=== PATIENT | male | born 1995 | race Two or more races ===

== ENCOUNTER 2018-12-11 22:01 | Emergency (ER) | payer MEDICAID ==
[~2018-12-11] VITALS: Ht 177.8 cm; Wt 81.6 kg
[2018-12-11 22:45] VITALS: BP 143/92
== END 2018-12-12 02:58 | disposition left against medical advice (07) ==
LOC: ER 22:07
DX: M25.521 Pain in right elbow (principal); Z53.21 Procedure and treatment not carried out due to patient leaving prior to being seen by health care provider
CPT/HCPCS: 73080

== ENCOUNTER 2018-12-12 11:03 | Emergency (ER) | payer MEDICAID ==
[~2018-12-12] VITALS: Ht 177.8 cm; Wt 81.6 kg
[2018-12-12 11:10] VITALS: BP 134/85
== END 2018-12-12 12:38 | disposition home or self-care (01) ==
LOC: ER 11:03
DX: S50.01XA Contusion of right elbow, initial encounter (principal); Y04.2XXA Assault by strike against or bumped into by another person, initial encounter; Y93.89 Activity, other specified; Y92.098 Other place in other non-institutional residence as the place of occurrence of the external cause; Y99.8 Other external cause status

== ENCOUNTER → 2019-08-29 | Emergency (ER) | payer SELFPAY ==
[~2019-08-29] VITALS: Ht 180.3 cm; Wt 79.4 kg
[2019-08-29 20:11] VITALS: BP 121/73
[2019-08-29 20:55] LABS: Urine Bacteria NONE SEEN /hpf (None Seen); Urine Blood Negative /uL (Negative); Urine Hyaline Cast MOD /lpf (0 - 2); Urine Mucus FEW (None Seen); Urine WBC 1 /hpf (0 - 3)
[2019-08-29 21:05] LABS: Alcohol, Urine < 3.0 mg/dL (0-5); Amphetamine Screen, Urine NEGATIVE (NEGATIVE); Barbiturate Scree,Urine NEGATIVE (NEGATIVE); Benzodiazephine Screen, Urine NEGATIVE (NEGATIVE); Cannabinoid Screen, Urine NEGATIVE (NEGATIVE); Cocaine Screen, Urine NEGATIVE (NEGATIVE); Opiate Scree,Urine NEGATIVE (NEGATIVE); Phencyclidine Screen, Urine NEGATIVE (NEGATIVE)
== END | disposition left against medical advice (07) ==
LOC: ER 20:11
DX: R25.1 Tremor, unspecified (principal); Z53.21 Procedure and treatment not carried out due to patient leaving prior to being seen by health care provider
CPT/HCPCS: 80307; 81001

== ENCOUNTER 2022-11-13 12:17 | Emergency (ER) | payer MEDICAID ==
[2022-11-13 13:11] LABS: Basophils # (auto) 0 10 ^3/uL (0-0.2); Basophils % (auto) 0.8 % (0.0-2.0); Eosinophils # (auto) 0.2 10 ^3/uL (0-0.8); Eosinophils % (auto) 3.4 % (0.0-7.0); Hematocrit 43.6 % (41.0-53.0); Hemoglobin 14.4 g/dL (13.5-17.5); Lymphocytes # (auto) 1.6 10 ^3/uL (0.4-5.4); Lymphocytes % (auto) 28.5 % (10.0-50.0); Mean Corpuscular Hemoglobin 27.5 pg (28.0-32.0); Mean Corpuscular Volume 83.2 fL (80.0-100.0); Monocytes # (auto) 0.6 10 ^3/uL (0-1.3); Monocytes % (auto) 9.6 % (0.0-12.0); Neutrophils # (auto) 3.3 10 ^3/uL (1.6-8.6); Neutrophils % (auto) 57.7 % (37.0-80.0); Nucleated Red Blood Cells % 0.2 %; Red Blood Cells 5.24 10^6/uL (4.5-5.90); Red Cell Distribution Width 13.5 % (11.8-14.3); White Blood Cell 5.8 10^3/uL (4.4-10.8)
[2022-11-13 13:12] LABS: Urine Amorphous Crystal FEW /hpf (None Seen); Urine Bacteria NONE SEEN /hpf (None Seen); Urine Blood Negative /uL (Negative); Urine Specific Gravity 1.018 (1.001-1.035); Urine WBC <1 /hpf (0 - 3)
[2022-11-13 13:51] LABS: Albumin 3.7 g/dL (3.4-5.0); Calcium 9.4 mg/dL (8.5-10.1); Potassium 4.1 mmol/L (3.5-5.1)
[2022-11-13 14:05] LABS: BUN/Creatinine Ratio 9.7 (10.0-20.0); Bilirubin, Total 0.6 mg/dL (0.2-1.0)
[2022-11-13] MEDS ORDERED: IOHEXOL 300 MG/ML 100ML BOTTLE IJ ONE (16:03)
[2022-11-13] MEDS ORDERED: cefTRIAXone 1GM/50ML D5W 50 ML IV ONE (17:00)
[2022-11-13] MEDS ORDERED: DOXYCYCLINE 100 MG TAB/CAP PO ONE (17:00)
[2022-11-13] MEDS ORDERED: DOXY-340 PO (17:00)
[2022-11-13] MEDS ORDERED: KETOROLAC TROMETH 30 MG/ML 1ML VIAL IV ONE (17:15)
[2022-11-13 17:32] VITALS: BP 101/62
== END 2022-11-13 18:00 | disposition home or self-care (01) ==
LOC: ER 12:17
DX: N41.0 Acute prostatitis (principal)
CPT/HCPCS: 36415; 74177; 80053; 81001; 85025; 86592; 87491; 87591; 96365; 96375; 99285; J0696; J1885; Q9967

== ENCOUNTER 2022-11-18 14:29 | Emergency (ER) | payer MEDICAID ==
[~2022-11-18] VITALS: Ht 154.9 cm; Wt 82.0 kg
[~2022-11-18 14:29] MED LIST: DOXY-340 PO
[2022-11-18 14:56] LABS: Urine WBC None Seen /hpf (0 - 3)
[2022-11-18 15:18] LABS: Urine Bacteria NONE SEEN /hpf (None Seen); Urine Blood Negative /uL (Negative); Urine Mucus FEW (None Seen); Urine Specific Gravity 1.019 (1.001-1.035)
[2022-11-18] MEDS ORDERED: IOHEXOL 350 MG/ML 100ML IJ ONE (15:40)
[2022-11-18] MEDS ORDERED: METR500T PO (17:01)
[2022-11-18] MEDS ORDERED: IBU600T PO (17:07)
[2022-11-18 17:26] VITALS: BP 125/68
== END 2022-11-18 17:28 | disposition home or self-care (01) ==
LOC: ER 14:29
DX: N41.0 Acute prostatitis (principal)
CPT/HCPCS: 74176; 81001; 99284; Q9967

== ENCOUNTER 2024-05-20 18:37 | Emergency (ER) | payer MEDICAID ==
[~2024-05-20] VITALS: Ht 182.9 cm; Wt 70.6 kg
[~2024-05-20 18:37] MED LIST changes: -DOXY-340 PO; +DOXY1CAP57 PO; +IBU600T PO; +METR500T PO
[2024-05-20] MEDS ORDERED: IBU600T PO (19:47)
[2024-05-20 20:39] VITALS: BP 118/79; PULSE 62; RESP 18; TEMP 98.9; O2SAT 100
== END 2024-05-20 20:41 | disposition home or self-care (01) ==
LOC: ER 18:37
DX: S62.291A Other fracture of first metacarpal bone, right hand, initial encounter for closed fracture (principal); Z79.899 Other long term (current) drug therapy; W18.39XA Other fall on same level, initial encounter; Y93.89 Activity, other specified; Y92.89 Other specified places as the place of occurrence of the external cause; Y99.8 Other external cause status
CPT/HCPCS: 29125; 73130

== ENCOUNTER 2024-09-19 18:42 | Emergency (ER) | payer MEDICAID ==
[~2024-09-19] VITALS: Ht 180.3 cm; Wt 84.1 kg
[2024-09-19 20:37] VITALS: BP 151/103; PULSE 78; RESP 18; TEMP 98.6; O2SAT 97
[2024-09-19] MEDS ORDERED: ACET500T58 PO (20:51)
[2024-09-19] MEDS ORDERED: CYCL-837 PO (20:51)
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
== END 2024-09-19 21:03 | disposition home or self-care (01) ==
LOC: ER 18:55
DX: S39.012A Strain of muscle, fascia and tendon of lower back, initial encounter (principal); S29.012A Strain of muscle and tendon of back wall of thorax, initial encounter; S83.91XA Sprain of unspecified site of right knee, initial encounter; R51.9 Headache, unspecified; V89.2XXA Person injured in unspecified motor-vehicle accident, traffic, initial encounter; Y93.89 Activity, other specified; Y92.410 Unspecified street and highway as the place of occurrence of the external cause; Y99.8 Other external cause status

== ENCOUNTER 2024-09-22 12:37 | Emergency (ER) | payer MEDICAID ==
[~2024-09-22] VITALS: Ht 180.3 cm; Wt 81.8 kg
[~2024-09-22 12:37] MED LIST changes: +ACET500T58 PO; +CYCL-837 PO
[2024-09-22 13:53] VITALS: BP 138/81; PULSE 73; RESP 16; TEMP 98.1; O2SAT 96
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
--- NOTE | 2024-09-22 14:30 | DVH ---
CLINICAL INDICATION: INJURY TECHNIQUE: 3-view left hand XY L HAND 3V XRAY Comparison: XY R HAND 3 VIEW XRAY on DOS: 05/20/24 FINDINGS/IMPRESSION: : There is no evidence of acute fracture or dislocation. Soft tissues are unremarkable.
[2024-09-22] MEDS ORDERED: IBU600T PO (14:46)
== END 2024-09-22 14:56 | disposition home or self-care (01) ==
LOC: ER 12:37
DX: S63.92XA Sprain of unspecified part of left wrist and hand, initial encounter (principal); S19.9XXA Unspecified injury of neck, initial encounter; S09.90XA Unspecified injury of head, initial encounter; Z79.899 Other long term (current) drug therapy; W19.XXXA Unspecified fall, initial encounter; Y93.89 Activity, other specified; Y92.89 Other specified places as the place of occurrence of the external cause; Y99.8 Other external cause status
CPT/HCPCS: 73130